=== PATIENT | male | born 1950 | race Caucasian/White ===

== ENCOUNTER 2016-07-24 21:13 | Observation (INO) ==
--- NOTE | 2016-07-24 21:27 | Emergency Department Note ---
Disposition Forms: ED Satisfaction Letter Chest Pain HPI - General Chief Complaint: ED Chest Pain Stated Complaint: chest pains Time Seen by Provider: 07/24/16 21:26 Source: patient Limitations: no limitations - History of Present Illness Severity scale (1-10): 7 - Related Data Home Medications Medication Instructions Recorded Confirmed Alfuzosin HCl [Uroxatral] 10 mg PO DAILY 08/16/15 08/16/15 Cyclobenzaprine [Flexeril] 10 mg PO HS 08/16/15 08/16/15 DiphenhydraMINE [Benadryl] 50 mg PO HS 08/16/15 08/16/15 Diphenoxylate/Atropine [Lomotil 1 tab PO DAILY 08/16/15 08/16/15 2.5 mg/0.025 mg] Fenofibrate [Lofibra] 160 mg PO DAILY 08/16/15 08/16/15 Folic Acid 1 mg PO DAILY 08/16/15 08/16/15 Lactobacillus Combination No.8 1 cap PO BID 08/16/15 08/16/15 [Adult Probiotic] Multivitamin [One Daily Essential] 1 tab PO DAILY 08/16/15 08/16/15 metFORMIN [Glucophage] 500 mg PO BIDWM 08/16/15 08/16/15 sulfaSALAzine [Sulfasalazine] 1,000 mg PO QAM 08/16/15 08/16/15 Previous Rx's Medication Instructions Recorded Clindamycin [Cleocin] 150 mg PO Q6HR #8 capsule 08/15/15 Hydrocodone/Acetaminophen [[place] 1 tab PO Q6H PRN #20 tab 08/15/15 5-325 Tablet] Allergies Allergy/AdvReac Type Severity Reaction Status Date / Time No Known Allergies Allergy Verified 10/20/14 04:34 Chest Pain PMH - Past Medical History Medical history: Reports: diabetes, hyperlipidemia, other Surgical history: Reports: other Psychiatric history: Reports: no psych history - Social History Smoking Status: Never smoker Alcohol use: Reports: none Drug use: Reports: none Physical Exam - General Limitations: no limitations General appearance: alert, in no apparent distress Course Vital Signs Temperature 97.8 F 07/24/16 21:17 Pulse Rate 116 07/24/16 21:17 Respiratory Rate 20 07/24/16 21:17 Blood Pressure 179/105 07/24/16 21:17 O2 Sat by Pulse Oximetry 95 06/09/17 21:17 Temperature 97.8 F 07/24/16 21:17 Pulse Rate 116 07/24/16 21:17 Respiratory Rate 20 07/24/16 21:17 Blood Pressure 179/105 07/24/16 21:17 O2 Sat by Pulse Oximetry 95 07/24/16 21:17 Oxygen Delivery Oxygen Delivery Room Air
[2016-07-24] MEDS ORDERED: Nitroglycerin 0.4 MG TAB.SUBL SL ONE (21:48)
[2016-07-24] MEDS ORDERED: Aspirin 81 MG TAB.CHEW PO ONE (21:48)
--- NOTE | 2016-07-24 21:48 | Emergency Department Note ---
Disposition Clinical Impression: Chest pain Disposition: Admitted As Inpatient Referrals: Mahendra Delgado MD [Primary Care Provider] - Forms: ED Satisfaction Letter Chest Pain HPI - General Chief Complaint: ED Chest Pain Stated Complaint: chest pains Time Seen by Provider: 07/24/16 21:26 Source: patient Mode of arrival: ambulatory Limitations: no limitations Vital Signs Reviewed: Yes Nursing Notes Reviewed: Yes - History of Present Illness Pt complaint: chest pain Severity scale (1-10): 7 - Related Data Home Medications Medication Instructions Recorded Confirmed Alfuzosin HCl [Uroxatral] 10 mg PO DAILY 08/16/15 08/16/15 Cyclobenzaprine [Flexeril] 10 mg PO HS 08/16/15 08/16/15 DiphenhydraMINE [Benadryl] 50 mg PO HS 08/16/15 08/16/15 Diphenoxylate/Atropine [Lomotil 1 tab PO DAILY 08/16/15 08/16/15 2.5 mg/0.025 mg] Fenofibrate [Lofibra] 160 mg PO DAILY 08/16/15 08/16/15 Folic Acid 1 mg PO DAILY 08/16/15 08/16/15 Lactobacillus Combination No.8 1 cap PO BID 08/16/15 08/16/15 [Adult Probiotic] Multivitamin [One Daily Essential] 1 tab PO DAILY 08/16/15 08/16/15 metFORMIN [Glucophage] 500 mg PO BIDWM 08/16/15 08/16/15 sulfaSALAzine [Sulfasalazine] 1,000 mg PO QAM 08/16/15 08/16/15 Previous Rx's Medication Instructions Recorded Clindamycin [Cleocin] 150 mg PO Q6HR #8 capsule 08/15/15 Hydrocodone/Acetaminophen [[place] 1 tab PO Q6H PRN #20 tab 08/15/15 5-325 Tablet] Allergies Allergy/AdvReac Type Severity Reaction Status Date / Time No Known Allergies Allergy Verified 10/20/14 04:34 All systems ED: reviewed and negative except as stated. Constitutional: Denies: fever, chills Cardiovascular: Reports: chest pain. Denies: palpitations, dyspnea on exertion , syncope Respiratory: Denies: cough, dyspnea Gastrointestinal: Reports: nausea. Denies: abdominal pain, vomiting, diarrhea Genitourinary: Denies: urgency, dysuria, frequency Musculoskeletal: Denies: back pain, neck pain Integumentary: Denies: rash Neurological: Denies: headache, weakness, numbness, paresthesias Psychiatric: Reports: anxiety Chest Pain PMH - Past Medical History Medical history: Reports: diabetes, hyperlipidemia, other Surgical history: Reports: other Psychiatric history: Reports: no psych history - Social History Smoking Status: Never smoker Alcohol use: Reports: none Drug use: Reports: none Physical Exam - General Limitations: no limitations General appearance: alert, in no apparent distress - Head Head exam: atraumatic, normocephalic, normal inspection - Eye Eye exam: Present: normal appearance, PERRL, EOMI - ENT ENT exam: normal exam, normal oropharynx, mucous membranes moist - Neck Neck exam: Present: normal inspection, full ROM - Chest Chest inspection: Present: normal inspection, symmetric chest wall rise. Absent : tenderness - Respiratory Respiratory exam: Present: normal lung sounds bilaterally. Absent: respiratory distress, wheezes - Cardiovascular Cardiovascular exam: Present: regular rate, normal rhythm, normal heart sounds - Abdominal Exam Abdominal exam: Present: soft, tenderness, normal bowel sounds. Absent: distention, guarding, rebound, rigidity Abdominal tenderness: Present: epigastrium - Extremities Exam Extremities exam: Present: normal inspection, full ROM, normal capillary refill. Absent: pedal edema, calf tenderness - Neurological Exam Neurological exam: Present: alert, oriented X3, CN II-XII intact, reflexes normal. Absent: motor sensory deficit - Psychiatric Psychiatric exam: Present: normal affect, anxious - Skin Skin exam: Present: warm, dry, intact, normal color. Absent: diaphoresis Course Vital Signs Temperature 97.8 F 07/24/16 21:17 Pulse Rate 116 07/24/16 21:17 Respiratory Rate 20 07/24/16 21:17 Blood Pressure 179/105 07/24/16 21:17 O2 Sat by Pulse Oximetry 95 07/24/16 21:17 Temperature 97.8 F 07/24/16 21:17 Pulse Rate 105 07/24/16 23:20 Respiratory Rate 16 07/24/16 23:20 Blood Pressure 166/92 07/24/16 23:20 O2 Sat by Pulse Oximetry 96 07/24/16 23:20 Oxygen Delivery Oxygen Delivery Room Air Chest Pain - Medical Records Medical records reviewed: Yes I reviewed the patient's medical records. - Lab Data Result diagrams: 07/24/16 21:45 07/24/16 21:45 Lab Results 07/24/16 07/24/16 07/24/16 Range/Units 21:45 21:45 21:45 WBC 11.6 H (4.3-11.1) K/mcL RBC 4.89 (4.19-5.50) M/mcL Hgb 13.8 (12.9-16.9) g/dL Hct 41.5 (37.5-50.1) % MCV 84.9 (83.0-100.0) fL MCH 28.2 (28.0-33.3) pg MCHC 33.3 (31.6-35.5) g/dL RDW 14.7 H (11.5-14.5) % Plt Count 146 (140-400) K/mcL MPV 10.5 (9.4-12.4) fL Immature Gran % 0.4 (0-4) % Seg Neutrophils % 87.7 % Lymphocytes % 4.2 % Monocytes % 7.4 % Eosinophils % 0.1 % Basophils % 0.2 % Neutrophils # 10.2 H (1.6-8.9) K/mcL Lymphocytes # 0.5 L (0.6-4.6) K/mcL Monocytes # 0.9 (0.0-1.3) K/mcL Eosinophils # 0.0 (0.0-0.6) K/mcL Basophils # 0.0 (0.0-0.2) K/mcL PT 10.9 (9.4-12.1) Seconds INR 1.0 APTT 26.1 (26.0-36.0) Seconds Sodium (136-145) mEq/L Potassium (3.5-4.5) mEq/L Chloride (98-109) mEq/L Carbon Dioxide (19-29) mEq/L BUN (8-26) mg/dL Creatinine (0.72-1.25) mg/dL Est GFR ( Amer) (> 60) Est GFR (Non-Af Amer) (> 60) BUN/Creatinine Ratio (6-26) Glucose (70-99) mg/dL Calculated Osmolality (280-300) Calcium (8.6-10.8) mg/dL Total Bilirubin (0.2-1.2) mg/dL Direct Bilirubin (0.0-0.5) mg/dL Indirect Bilirubin (0.0-1.2) mg/dL AST (5-34) Units/L ALT (0-55) Units/L Alkaline Phosphatase (38-126) Units/L Troponin I (0-0.03) ng/mL B-Natriuretic Peptide 13 (0-100) pg/mL Serum Total Protein (6.0-8.3) g/dL Albumin (3.5-5.0) g/dL Globulin (2.4-3.5) g/dL Albumin/Globulin Ratio (1.1-2.2) Lipase (8-78) Units/L 07/24/16 07/24/16 Range/Units 21:45 21:45 WBC (4.3-11.1) K/mcL RBC (4.19-5.50) M/mcL Hgb (12.9-16.9) g/dL Hct (37.5-50.1) % MCV (83.0-100.0) fL MCH (28.0-33.3) pg MCHC (31.6-35.5) g/dL RDW (11.5-14.5) % Plt Count (140-400) K/mcL MPV (9.4-12.4) fL Immature Gran % (0-4) % Seg Neutrophils % % Lymphocytes % % Monocytes % % Eosinophils % % Basophils % % Neutrophils # (1.6-8.9) K/mcL Lymphocytes # (0.6-4.6) K/mcL Monocytes # (0.0-1.3) K/mcL Eosinophils # (0.0-0.6) K/mcL Basophils # (0.0-0.2) K/mcL PT (9.4-12.1) Seconds INR APTT (26.0-36.0) Seconds Sodium 139 (136-145) mEq/L Potassium 3.7 (3.5-4.5) mEq/L Chloride 99 (98-109) mEq/L Carbon Dioxide 14 L (19-29) mEq/L BUN 7 L (8-26) mg/dL Creatinine 0.84 (0.72-1.25) mg/dL Est GFR ( Amer) > 60 (> 60) Est GFR (Non-Af Amer) > 60 (> 60) BUN/Creatinine Ratio 8 (6-26) Glucose 81 (70-99) mg/dL Calculated Osmolality 285 (280-300) Calcium 8.9 (8.6-10.8) mg/dL Total Bilirubin 0.6 (0.2-1.2) mg/dL Direct Bilirubin 0.3 (0.0-0.5) mg/dL Indirect Bilirubin 0.3 (0.0-1.2) mg/dL AST 140 H (5-34) Units/L ALT 112 H (0-55) Units/L Alkaline Phosphatase 46 (38-126) Units/L Troponin I 0.02 (0-0.03) ng/mL B-Natriuretic Peptide (0-100) pg/mL Serum Total Protein 6.6 (6.0-8.3) g/dL Albumin 3.7 (3.5-5.0) g/dL Globulin 2.9 (2.4-3.5) g/dL Albumin/Globulin Ratio 1.3 (1.1-2.2) Lipase 28 (8-78) Units/L - Radiology Data Radiology results reviewed: Yes I reviewed the patient's radiology results. Chest X-Ray 07/24/16 21:48 IMPRESSION: No acute cardiopulmonary abnormality. D/ / Raz Bolton MD / Raz Bolton MD Interpreting Provider: Raz Bolton MD Chest CTA 07/24/16 22:36 IMPRESSION: 1. Mild aortic atherosclerosis with no aneurysm or dissection. No central pulmonary emboli. 2. No acute pneumonia. Indeterminate 7 mm right upper lobe pulmonary nodule. A follow-up CT thorax without contrast at 6 and 12 months is recommended for the 2017 Fleischner Society guidelines for management of incidentally detected pulmonary nodules in adults. 3. Findings suggesting gastroenteritis. No obstruction, perforation, or abscess. Normal appendix. 4. Severe hepatic steatosis. Nonobstructing left nephrolithiasis. Left nate colonic diverticulosis. D/ / Alberto Herrera MD / Alberto Herrera MD Interpreting Provider: Alberto Herrera MD - EKG Data EKG attestation: Yes I reviewed and interpreted this EKG. EKG results narrative: Patient's EKG shows a sinus tachycardia with short WI interval at [address] or T-wave changes are appreciated, nonspecific changes. Heart Score - Score History: Moderately Suspicious EKG: Non Specific repolarisation Disturbance Age: Greater than 65 Risk Factors: 1-2 risk factors Troponin: Less than normal limit HEART Score Total: 5
[2016-07-24 21:58] LABS: Basophils % 0.2 %; Eosinophils % 0.1 %; Hematocrit 41.5 % (37.5-50.1); Hemoglobin 13.8 g/dL (12.9-16.9); Immature Granulocytes % 0.4 % (0-4); Lymphocytes # 0.5 K/mcL (0.6-4.6); Lymphocytes % 4.2 %; Mean Corpuscular HGB Conc 33.3 g/dL (31.6-35.5); Mean Corpuscular Hemoglobin 28.2 pg (28.0-33.3); Mean Corpuscular Volume 84.9 fL (83.0-100.0); Mean Platelet Volume 10.5 fL (9.4-12.4); Monocytes # 0.9 K/mcL (0.0-1.3); Monocytes % 7.4 %; Neutrophils # 10.2 K/mcL (1.6-8.9); Platelet Count 146 K/mcL (140-400); Red Blood Count 4.89 M/mcL (4.19-5.50); Red Cell Distribution Width 14.7 % (11.5-14.5); Segmented Neutrophils % 87.7 %
[2016-07-24 22:00] LABS: Prothrombin Time 10.9 Seconds (9.4-12.1)
[2016-07-24 22:03] LABS: Activated Partial Thrombo Time 26.1 Seconds (26.0-36.0)
[2016-07-24 22:10] LABS: Alanine Aminotransferase 112 Units/L (0-55); Albumin 3.7 g/dL (3.5-5.0); Albumin/Globulin Ratio 1.3 (1.1-2.2); Alkaline Phosphatase 46 Units/L (38-126); Aspartate Amino Transferase 140 Units/L (5-34); BUN/Creatinine Ratio 8 (6-26); Bilirubin,Direct 0.3 mg/dL (0.0-0.5); Bilirubin,Indirect 0.3 mg/dL (0.0-1.2); Bilirubin,Total 0.6 mg/dL (0.2-1.2); Blood Urea Nitrogen 7 mg/dL (8-26); Calcium 8.9 mg/dL (8.6-10.8); Carbon Dioxide 14 mEq/L (19-29); Chloride 99 mEq/L (98-109); Globulin 2.9 g/dL (2.4-3.5); Glucose 81 mg/dL (70-99); Lipase 28 Units/L (8-78); Osmolality,Calculated 285 (280-300); Potassium 3.7 mEq/L (3.5-4.5); Sodium 139 mEq/L (136-145); Total Protein 6.6 g/dL (6.0-8.3); eGFR For African Americans > 60 (> 60); eGFR For Non-African Americans > 60 (> 60)
[2016-07-24] MEDS ORDERED: Ondansetron 4 MG/2 ML VIAL IVP ONE (22:37)
[2016-07-24] MEDS ORDERED: *HR* Morphine 2 MG/ML SYRINGE IVP ONE (22:37)
[2016-07-25] MEDS ORDERED: Nitroglycerin 0.4 MG TAB.SUBL SL PRN (01:08)
[2016-07-25] MEDS ORDERED: Ipratropium/Albuterol Neb 3 ML IH PRN (01:08)
[2016-07-25] MEDS ORDERED: Doxycycline 100 MG in 0.9 % Sodium Chloride Mini Bag 100 ML IVPB SCH (01:09)
[2016-07-25] MEDS ORDERED: D5% in Water 1,000 ML IVC PRN (01:10)
[2016-07-25] MEDS ORDERED: Ketorolac 30 MG/ML VIAL IVP PRN (01:10)
[2016-07-25] MEDS ORDERED: Naloxone 0.4 MG/ML INJ IVP PRN (01:10)
[2016-07-25] MEDS ORDERED: Acetaminophen 325 MG TABLET PO PRN (01:10)
[2016-07-25] MEDS ORDERED: *HR* Dextrose 50 % in Water (Syg) 50 ML SYRINGE IVP PRN (01:10)
[2016-07-25] MEDS ORDERED: Dextrose Gel 15 GM PO PRN ×2 (01:10)
[2016-07-25] MEDS ORDERED: *HR* Morphine 2 MG/ML SYRINGE IVP PRN (01:10)
[2016-07-25] MEDS ORDERED: Ondansetron 4 MG/2 ML VIAL IVP PRN (01:10)
--- NOTE | 2016-07-25 01:18 | Internal Med History&Physical ---
Date of Encounter: 07/25/16 Time of Encounter: 01:15 Assessment and Plan (1) Transaminitis Current visit: Yes Status: Acute Accompanied by lymphopenia which sometimes can be seen in early Ehrlichiosis/ anaplasmosis Monitor CMP's Tests for Ehrlichia Anaplasma Start doxycycline which may be discontinued if negative May order a liver ultrasound Omeprazole for GI prophylaxis and subcutaneous heparin for DVT prophylaxis. The patient will be admitted for observation. Full code. Time spent on this admission 40 minutes. (2) Lymphopenia Current visit: Yes Status: Acute (3) Diabetes Current visit: Yes Status: Acute Hold metformin, use insulin sliding scale Qualifiers: Diabetes mellitus type: type 2 Diabetes mellitus complication status: without complication Diabetes mellitus assisted insulin use: without assisted use Qualified Code(s): E11.9 - Type 2 diabetes mellitus without complications (4) Crohns disease Current visit: Yes Status: Acute Hold sulfasalazine for possible infection Qualifiers: Gastrointestinal tract location: unspecified location Digestive disease complication type: unspecified complication Qualified Code(s): K50.919 - Crohn 's disease, unspecified, with unspecified complications (5) Dehydration Current visit: Yes Status: Acute Continue IV fluids (6) Chest pain Current visit: Yes Status: Acute Continue aspirin, no stating due to abnormal LFTs Telemetry, follow troponins Order echocardiogram, consider stress test when he is more stable Qualifiers: Chest pain type: other chest pain Qualified Code(s): R07.89 - Other chest pain; R07.8 - Other chest pain Internal Medicine - H&P: HPI Chief complaint: Chest pain Admitted From: Emergency Dept History of present illness: Mr. Stanley is a 66 year old male with a past medical history of hyperlipidemia, diabetes type 2 not insulin-dependent Crohn's on sulfasalazine. Patient came complaining of chest pressure that started earlier today at 3 PM accompanied by shortness of breath 8 out of 10 in intensity without radiation. The patient was very diaphoretic and his heart rate is 116, blood pressure 179 / 105. Appears very sweaty his white blood cell count is 11.6 but has lymphopenia at 0.5 his AST is 140 ALT is 112, denies any sick contacts, says that he does not drink any alcohol. Admits walking outside a lot, has lost a lot of weight on purpose in the past 6 weeks going from 256 pounds down to 234. A few days ago she found a small lesion in his right thigh that was erythematosus and is healing properly at the moment. Denies seeing any tick bite but that lesion appears like a bite. CT angios was performed in the emergency room and did not show any pulmonary emboli or dissection. Showed a pulmonary nodule. The pain has come down to 4 out of 10 after morphine, he was given aspirin. EKG shows sinus tachycardia, troponin and chest x-ray are unremarkable. Past Med Surg Social Fam HX - Past Medical History Medical history: diabetes (Not insulin-dependent), hyperlipidemia, other (Crohn' s disease on sulfasalazine, hyperlipidemia, nephrolithiasis, diverticulosis) Psychiatric history: no psych history - Past Surgical History Surgical History: other (Hip replacement) - Social History Smoking Status: Never smoker Smokeless Tobacco Status: Yes Alcohol use: none Drug use: none - Additional Family History Additional family history: Father with skin cancer Internal Medicine - H&P: Meds Clindamycin [Cleocin] 150 mg PO Q6HR #8 capsule 08/15/15 [Rx] Alfuzosin HCl [Uroxatral] 10 mg PO HS 08/16/15 [History] Cyclobenzaprine [Flexeril] 10 mg PO HS 08/16/15 [History] DiphenhydraMINE [Benadryl] 50 mg PO HS 08/16/15 [History] Diphenoxylate/Atropine [Lomotil 2.5 mg/0.025 mg] 1 tab PO TID 08/16/15 [History] Fenofibrate [Lofibra] 160 mg PO DAILY 08/16/15 [History] Folic Acid 1 mg PO DAILY 08/16/15 [History] Multivitamin [One Daily Essential] 1 tab PO DAILY 08/16/15 [History] metFORMIN [Glucophage] 1,000 mg PO BIDWM 08/16/15 [History] sulfaSALAzine [Sulfasalazine] 1,000 mg PO QAM 08/16/15 [History] Allergies No Known Allergies Allergy (Verified 07/25/16 01:05) All Systems PM: A 10-system review of systems was performed and is negative for pertinent findings except as documented above in the HPI. Review of systems: Feels very weak and continues to complain of chest pressure. Other systems out of the 10 reviewed were negative - Constitutional Vitals: Temp Pulse Resp BP Pulse Ox 97.8 F 104 16 158/90 98 07/24/16 21:17 07/25/16 00:51 07/25/16 01:12 07/25/16 01:12 07/25/16 00:51 General appearance: Present: A&O X 3 - Head Head exam: Present: atraumatic, normocephalic - Eye Eye exam: Present: PERRL, conjuntiva pink, sclera anicteric Pupils: Present: PERRL - Neck Neck exam general surgery: Present: supple, trachea midline. Absent: lymphadenopathy - Respiratory Respiratory exam: Present: decreased breath sounds, CTAB. Absent: accessory muscle use, rales, rhonchi, wheezes - Cardiovascular Cardiovascular exam: Present: RRR, +S1, +S2, tachycardia. Absent: diastolic murmur, gallop, rubs, systolic murmur - GI/Abdominal GI/Abdominal exam: Present: normal bowel sounds, soft, no peritoneal signs. Absent: distended, tenderness Additional comments: Epigastric tenderness - Extremities Exam Extremities exam: Present: warm, radial pulses palpable and symetrical. Absent : calf tenderness, cyanotic, pedal edema - Neurological Exam Neurological exam: Present: CN II-XII intact, oriented X3, no focal deficits. Absent: pronater drift, facial droop, speech deficit - Skin Skin exam: Present: dry, intact Internal Med - H&P Results - Labs CBC & Chem 7: 07/24/16 21:45 07/24/16 21:45
[2016-07-25] MEDS: 0.9 % Sodium Chloride 1,000 ML IVC SCH ×5 (02:23→19:37)
[2016-07-25 03:03] LABS: Basophils % 0.2 %; Hemoglobin 12.9 g/dL (12.9-16.9); Immature Granulocytes % 0.5 % (0-4); Lymphocytes # 0.5 K/mcL (0.6-4.6); Lymphocytes % 4.4 %; Mean Corpuscular HGB Conc 33.1 g/dL (31.6-35.5); Mean Corpuscular Hemoglobin 28.2 pg (28.0-33.3); Mean Corpuscular Volume 85.2 fL (83.0-100.0); Mean Platelet Volume 11.2 fL (9.4-12.4); Monocytes # 0.7 K/mcL (0.0-1.3); Monocytes % 7.2 %; Platelet Count 135 K/mcL (140-400); Red Blood Count 4.58 M/mcL (4.19-5.50); Red Cell Distribution Width 14.8 % (11.5-14.5); Segmented Neutrophils % 87.7 %
[2016-07-25 03:21] LABS: BUN/Creatinine Ratio 9 (6-26); Blood Urea Nitrogen 9 mg/dL (8-26); Carbon Dioxide 16 mEq/L (19-29); Chloride 98 mEq/L (98-109); Sodium 136 mEq/L (136-145)
[2016-07-25 03:22] LABS: Alanine Aminotransferase 98 Units/L (0-55); Albumin 3.4 g/dL (3.5-5.0); Albumin/Globulin Ratio 1.2 (1.1-2.2); Alkaline Phosphatase 43 Units/L (38-126); Aspartate Amino Transferase 103 Units/L (5-34); Bilirubin,Total 0.7 mg/dL (0.2-1.2); Calcium 8.9 mg/dL (8.6-10.8); Chol/HDL Ratio 4.2 (0-4.9); Cholesterol 175 mg/dL (< 200); Globulin 2.8 g/dL (2.4-3.5); Glucose 167 mg/dL (70-99); HDL Cholesterol 42 mg/dL (40-59); LDL Cholesterol,Calculated 109 mg/dL (0-99); Osmolality,Calculated 284 (280-300); Total Protein 6.2 g/dL (6.0-8.3); Triglycerides 120 mg/dL (< 150); eGFR For African Americans > 60 (> 60); eGFR For Non-African Americans > 60 (> 60)
[2016-07-25] MEDS: *HR* Heparin 5,000 UNIT/ML VIAL SQ SCH ×2 (05:33→17:24)
[2016-07-25] MEDS: Insulin LISPRO 300 UNITS/3 ML VIAL SQ SCH ×3 (08:03→16:57)
[2016-07-25] MEDS ORDERED: GI Cocktail 40 ML EACH PO ONE (10:09)
[2016-07-25] MEDS: Aspirin Enteric Coated 325 MG Tablet PO SCH (10:30)
[2016-07-25] MEDS: Doxycycline 100 MG in 0.9 % Sodium Chloride Mini Bag 100 ML IVPB SCH (14:30)
--- NOTE | 2016-07-25 17:40 | Internal Med Progress Note ---
Date of Encounter: 07/25/16 Time of Encounter: 09:30 - Assessment and plan (1) Chest pain Current Visit: Yes Status: Acute Assessment and plan: Patient reported sudden onset epigastric and substernal pain that began at 1400 yesterday while he was at rest. He said it was 10 out of 10 without radiation. He did have nausea, no vomiting, and was profusely diaphoretic. He denies history of GERD or any recent heartburn symptoms. He rated 10 out of 10 at the time, this morning it was 4 out of 10. After he returned from his testing I gave him a GI cocktail and he said the pain has resolved. He is tender in the epigastric area. He sees GI specialist in [place] for his Crohn's, he denies ever having an EGD. We will start Carafate today. Patient had an echocardiogram today that showed normal systolic function with LVEF is 6065%, mild diastolic dysfunction. No significant valvular dysfunction no evidence of pulmonary hypertension. His troponins were negative 3. Chest x -ray was negative. CTA chest showed mild aortic atherosclerosis no pulmonary emboli. No acute pneumonia. Indeterminate 7 mm right upper lobe nodule that would need followed up with CT in 6-12 months. Findings suggestive with gastroenteritis, no obstruction no perforation and no abscess. Appendix were normal. Patient also has severe hepatic steatosis, nonobstructing left nephrolithiasis, and left nate-colonic diverticulosis. We will continue prescription benefit specialist labs Monitor for chest pain. Consider stress test if chest pain continues after patient is more stable. Qualifiers: Chest pain type: other chest pain Qualified Code(s): R07.89 - Other chest pain; R07.8 - Other chest pain (2) Transaminitis Current Visit: Yes Status: Acute Assessment and plan: Transaminases have decreased since admission, however they are still elevated. CTA chest shows severe hepatic steatosis. Patient had a right upper quadrant ultrasound there is no evidence for cholelithiasis or biliary obstruction, there is sludge in the gallbladder. Again it shows hepatic steatosis, and normal appearance of the right kidney and visualized portion of the pancreas. There is no hepatomegaly. He is tender in the epigastric area, and CTA chest was positive for gastritis. Sclera are icteric and patient does appear to be slightly jaundiced on his extremities. He also reports that he has a history of hepatitis C antibodies. Patient is receiving IV doxycycline for possible ehrlichiosis or anaplasmosis. Hepatic panel and transaminases in the morning Viral hepatitis panel is ordered and pending IV fluids Patient also has lymphocyte# 0.5, Erlichia and Anaplasma labs are still pending (3) Lymphopenia Current Visit: Yes Status: Acute Assessment and plan: Plan as above (4) Diabetes Current Visit: Yes Status: Acute Assessment and plan: Sliding-scale insulin Diabetic diet Next checks before meals at bedtime A1c 6.8 in May. Qualifiers: Diabetes mellitus type: type 2 Diabetes mellitus complication status: without complication Diabetes mellitus network administrator insulin use: without senior care use Qualified Code(s): E11.9 - Type 2 diabetes mellitus without complications (5) Crohns disease Current Visit: Yes Status: Acute Assessment and plan: Sulfasalazine as been held. Patient denies pain or complications. Qualifiers: Gastrointestinal tract location: unspecified location Digestive disease complication type: unspecified complication Qualified Code(s): K50.919 - Crohn 's disease, unspecified, with unspecified complications (6) Dehydration Current Visit: Yes Status: Acute Assessment and plan: IV fluids overnight. - Time Spent With Patient less than 15 minutes - Subjective Interval history: Patient was seen and evaluated about 9:30 AM. He reported epigastric pain and substernal pain that began at 2 PM yesterday while he was resting. He reports that it was a 10 out of 10. There is no radiation, but he did have nausea and profuse diaphoresis. It was a 4 out of 10 when I initially assessed him. He then went to his ultrasound and echo and when he came back again a GI cocktail. Since that time the pain has resolved. He is tender in the epigastric area. He says that he does see a GI specialist in [place] for his Crohn's disease. He denies having an EGD done. Patient's tests have all come back normal, however I am concerned with his transaminase levels and he is slightly jaundiced. His sclerae and arms are very slightly jaundiced. Patient initially said that he wanted to go home and he cannot afford to be here. I did request that he sign out AMA and he decided to stay. The primary nurse and I did go over his labs with him. He said he had labs done in May and that they were perfectly fine. He did report at the end of the evaluation that his primary care physician has told him that he has hepatitis C antibodies. Viral hepatitis panel has been ordered and will be reviewed in the morning. - Constitutional Vitals: Temp Pulse Resp BP Pulse Ox 98.6 F 81 17 179/101 97 07/25/16 15:37 07/25/16 15:37 07/25/16 15:37 07/25/16 15:37 07/25/16 15:37 General appearance: Present: cooperative, A&O X 3, pleasant, no acute distress, answers questions appropriately - Head Head exam: Present: normal inspection - Eye Eye exam: Present: EOMI, scleral icterus, conjuntiva pink. Absent: nystagmus - ENT ENT exam: Present: mucous membranes moist, normal exam, normal external ear exam - Neck Neck exam general surgery: Present: normal inspection. Absent: lymphadenopathy , tenderness - Respiratory Respiratory exam: Present: CTAB. Absent: decreased breath sounds, rales, respiratory distress, rhonchi, wheezes - Cardiovascular Cardiovascular exam: Present: RRR, +S1, +S2. Absent: clicks, diastolic murmur, gallop, systolic murmur - GI/Abdominal GI/Abdominal exam: Present: distended, soft, tenderness. Absent: hepatomegaly Additional comments: No hepatomegaly noted. Patient was tender in the epigastric area. - Extremities Exam Extremities exam: Present: normal inspection, warm, radial pulses palpable and symetrical. Absent: tenderness - Neurological Exam Neurological exam: Present: alert, oriented X3, no focal deficits, strengths equal and symetr throughout. Absent: facial droop, speech deficit - Skin Skin exam: Present: dry, intact, warm. Absent: normal color, rash Internal Medicine: Result - Labs CBC & Chem 7: 07/25/16 01:59 07/25/16 01:59 Labs: Short CBC 07/25/16 Range/Units 01:59 WBC 10.3 (4.3-11.1) K/mcL Hgb 12.9 (12.9-16.9) g/dL Hct 39.0 (37.5-50.1) % Plt Count 135 L (140-400) K/mcL Neutrophils # 9.0 H (1.6-8.9) K/mcL BMP 07/25/16 01:59 Sodium 136 Potassium 4.0 Chloride 98 Carbon Dioxide 16 L BUN 9 Creatinine 1.01 Glucose 167 H Calcium 8.9 Cardiac Enzymes 06/10/17 06/10/17 06/10/17 Range/Units 01:59 08:48 13:45 Troponin I 0.00 0.00 0.00 (0-0.03) ng/mL Liver Function 07/25/16 Range/Units 01:59 Total Bilirubin 0.7 (0.2-1.2) mg/dL AST 103 H (5-34) Units/L ALT 98 H (0-55) Units/L Alkaline Phosphatase 43 (38-126) Units/L Albumin 3.4 L (3.5-5.0) g/dL - ABG Interpretation ABG results: PT/INR, D-dimer PT 10.9 Seconds (9.4-12.1) 07/24/16 21:45 - Impressions Impressions Liver Ultrasound 07/25/16 09:30 IMPRESSION: 1. No evidence of cholelithiasis or biliary obstruction. There is sludge in the gallbladder lumen 2. Hepatic steatosis 3. Normal appearance of the right kidney and visualized portion of the pancreas D/ / Michael Ahn MD / Michael Ahn MD Interpreting Provider: Michael Ahn MD Consult Discharge Plan - Plan Referrals: Mahendra Delgado MD [Primary Care Provider] -
[2016-07-26] MEDS: Doxycycline 100 MG in 0.9 % Sodium Chloride Mini Bag 100 ML IVPB SCH (01:38)
[2016-07-26] MEDS: 0.9 % Sodium Chloride 1,000 ML IVC SCH ×3 (01:38→06:07)
[2016-07-26 04:14] LABS: Basophils % 0.2 %; Eosinophils # 0.1 K/mcL (0.0-0.6); Eosinophils % 1.7 %; Hematocrit 35.8 % (37.5-50.1); Hemoglobin 11.8 g/dL (12.9-16.9); Immature Granulocytes % 0.4 % (0-4); Lymphocytes # 0.9 K/mcL (0.6-4.6); Lymphocytes % 17.1 %; Mean Corpuscular Hemoglobin 28.2 pg (28.0-33.3); Mean Corpuscular Volume 85.4 fL (83.0-100.0); Mean Platelet Volume 11.3 fL (9.4-12.4); Monocytes # 0.4 K/mcL (0.0-1.3); Monocytes % 8.5 %; Neutrophils # 3.7 K/mcL (1.6-8.9); Platelet Count 104 K/mcL (140-400); Red Blood Count 4.19 M/mcL (4.19-5.50); Red Cell Distribution Width 14.8 % (11.5-14.5); Segmented Neutrophils % 72.1 %
[2016-07-26 04:23] LABS: Albumin 2.9 g/dL (3.5-5.0); Albumin/Globulin Ratio 1.2 (1.1-2.2); Bilirubin,Direct 0.3 mg/dL (0.0-0.5); Bilirubin,Indirect 0.4 mg/dL (0.0-1.2); Bilirubin,Total 0.7 mg/dL (0.2-1.2); Globulin 2.4 g/dL (2.4-3.5); Total Protein 5.3 g/dL (6.0-8.3)
[2016-07-26 04:24] LABS: Alanine Aminotransferase 53 Units/L (0-55); Aspartate Amino Transferase 44 Units/L (5-34); BUN/Creatinine Ratio 8 (6-26); Blood Urea Nitrogen 6 mg/dL (8-26); Calcium 8.4 mg/dL (8.6-10.8); Carbon Dioxide 27 mEq/L (19-29); Chloride 101 mEq/L (98-109); Glucose 98 mg/dL (70-99); Osmolality,Calculated 282 (280-300); Potassium 3.3 mEq/L (3.5-4.5); Sodium 137 mEq/L (136-145); eGFR For African Americans > 60 (> 60); eGFR For Non-African Americans > 60 (> 60)
[2016-07-26] MEDS: *HR* Heparin 5,000 UNIT/ML VIAL SQ SCH (05:29)
[2016-07-26 07:51] VITALS: BP 183/102
[2016-07-26] MEDS: Insulin LISPRO 300 UNITS/3 ML VIAL SQ SCH (08:25)
[2016-07-26] MEDS: Aspirin Enteric Coated 325 MG Tablet PO SCH (08:31)
--- NOTE | 2016-07-26 09:54 | Discharge Summary ---
Date of Encounter: 07/26/16 Time of Encounter: 09:00 - Discharge Diagnosis (1) Chest pain Priority: Primary Status: Acute Comments: Patient denies chest pain today. He says he has not had chest pain since yesterday. I gave him a GI cocktail yesterday that brought his pain from a 4-5/ 10 to a 1/10. He remains tender in the epigastric area, but states it is at her than previously Patient had echocardiogram showed normal systolic function with an LVEF of 60-65 %, mild diastolic dysfunction, normal right ventricular size and function with no significant valvular dysfunction or pulmonary hypertension.. Chest x-ray was negative. Chest CT angioma showed mild aortic atherosclerosis with no aneurysm or dissection, no PE. No pneumonia. He has an indeterminate 7 mm right upper lobe pulmonary nodule that needs followed up in 6-[address] were suggestive of gastroenteritis, there is no obstruction or perforation or abscess. He also has severe hepatic steatosis, nonobstructing left nephrolithiasis, as well as left hemicolonic diverticulosis. Troponins were negative. He denies chest pain. His vitals have remained stable. Qualifiers: Chest pain type: other chest pain Qualified Code(s): R07.89 - Other chest pain; R07.8 - Other chest pain (2) Transaminitis Priority: Secondary Status: Acute Comments: Transaminases were elevated yesterday, have decreased today. AST remains elevated at 44, however was 140 on arrival. ALT has returned to normal. Hepatitis panel, Erlichia, and Anaplasma labs are still pending, they have been received by lab. No hepatomegaly noted, Cadena's negative, abd soft and non- tender other than in epigastric area. CTA chest showed severe hepatic steatosis. Patient also had a right upper quadrant ultrasound that showed no evidence of cholelithiasis or biliary distraction, there is sludge in the gallbladder lumen. It also showed hepatic steatosis as well as normal appearance of the right kidney and visualized portion of the pancreas. Patient's sclera are no longer icteric, patient still does have faint yellowish cast to bilateral arms. Patient states this is normal for him and that he is rico. Patient will need to follow up with primary care for further evaluation and testing. (3) Lymphopenia Priority: Secondary Status: Acute Comments: Lymphocytes have returned to normal limits today, no leukocytosis. (4) Diabetes Priority: Secondary Status: Acute Comments: A1c is 6.8 and May. Patient will continue home medications and Accu-Cheks at home. Qualifiers: Diabetes mellitus type: type 2 Diabetes mellitus complication status: without complication Diabetes mellitus assisted insulin use: without intermodal customer service use Qualified Code(s): E11.9 - Type 2 diabetes mellitus without complications (5) Crohns disease Priority: Secondary Status: Chronic Comments: Chronic. Continue home medications. No acute flair. Qualifiers: Gastrointestinal tract location: unspecified location Digestive disease complication type: unspecified complication Qualified Code(s): K50.919 - Crohn 's disease, unspecified, with unspecified complications (6) Dehydration Priority: Secondary Status: Acute Comments: Patient appears to be euvolemic. Labs within normal limits. Patient has been getting IV fluids and also tolerates by mouth intake well. - Discharge Medications Prescriptions: Doxycycline 100 mg PO BID #10 capsule Omeprazole 20 mg PO DAILY #30 tablet. Home Medications: Alfuzosin HCl [Uroxatral] 10 mg PO HS 08/16/15 [History] Cyclobenzaprine [Flexeril] 10 mg PO HS 08/16/15 [History] DiphenhydraMINE [Benadryl] 50 mg PO HS 08/16/15 [History] Diphenoxylate/Atropine [Lomotil 2.5 mg/0.025 mg] 1 tab PO TID 08/16/15 [History] Fenofibrate [Lofibra] 160 mg PO DAILY 08/16/15 [History] Folic Acid 1 mg PO DAILY 08/16/15 [History] Multivitamin [One Daily Essential] 1 tab PO DAILY 08/16/15 [History] metFORMIN [Glucophage] 1,000 mg PO BIDWM 08/16/15 [History] sulfaSALAzine [Sulfasalazine] 1,000 mg PO QAM 08/16/15 [History] Doxycycline 100 mg PO BID #10 capsule 07/26/16 [Rx] Omeprazole 20 mg PO DAILY #30 tablet. 07/26/16 [Rx] Allergies/Adverse Reactions: Allergies No Known Allergies Allergy (Verified 07/25/16 01:05) Procedures/tests Complete & Pending: Procedures Performed prior 72 hours Category Date Time Status US liver [US] Routine Exams 07/25/16 09:30 Completed EV echocardiogram Routine Y 07/25/16 01:10 Completed Date of admission: 07/25/16 00:45 Primary care physician: Mahendra Delgado, Consults: 07/25/16 01:47 Consult to [facility]orter [CONS] Routine Reason for SW Consult: financial concerns Discharging clinician: Porsche Campuzano Anticipated date of discharge: 07/26/16 - Patient Status Disposition: Home, Self-Care Condition: Good Functional capacity at discharge: independent ambulation Overall status at discharge: patient is back to baseline - Discharge Instructions Follow Up With: Mahendra Delgado MD [Primary Care Provider] - Additional Instructions: Continue your normal home medications. Make sure that you are doing her Accu-Cheks and taking her diabetic medications and watching your diet. Continue taking the antibiotic every 12 hours until they are gone. Someone will call you if the Erlichiosis and Anaplasmosis labs are positive. Start taking omeprazole in the morning. Take one every morning. Follow-up with Dr. Delgado in the next week to 10 days for follow-up visit. You will want to discuss your elevated transaminases, epigastric pain, and slightly elevated A1c with him. Return to the emergency department for any returning or new chest pain or for any other new or concerning symptoms. You have a 7mm RUL pulmonary nodule that will need follow up in 6-12 months. - Diet and Activity Activity: resume usual activities as tolerated Diet: diabetic diet, low fat, low cholesterol Hospital course: Mr. Stanley is a 66 year old male with a prior medical history of Crohn's disease, diabetes, and hyperlipidemia, who presented to the emergency department with reported epigastric pain with radiation to substernal area that began at 2 PM Darryn admission while he was at rest. He reports that it was 10/ 10. There is no radiation, but he did have nausea and profuse diaphoresis. Yesterday when I initially assessed him the pain was 4/10, he was given a GI cocktail which seemed to resolve the pain. it was a 1/10 after that and he denies pain today. He has a history of Crohn's disease and does have a GI specialist in [place], however he has never had an EGD per his report. Patient was not discharged yesterday due to transaminase levels and some yellow- rico to sclera and arms. Patient was wanting to leave due to concern for cost of admission, he did stay and decided not to sign out AMA. AST has had a significant decrease and is almost back to normal limits, ALT is back to normal limits. There is no hepatomegaly noted, abdomen is slightly tender epigastric area. Patient reports at one point that his doctor did tell him that he had hepatitis C antibodies. Patient also had lymphopenia, that has also resolved today. Never had any leukocytosis, fever. Echocardiogram showed a normal systolic function with LVEF of 6065%, mild diastolic dysfunction, normal RV size and function. Patient denies chest pain. Chest x-ray was negative, chest CTA showed hepatic steatosis and a pulmonary nodule that will need follow-up in 6-12 months. He also has some nonobstructing left nephrolithiasis. Right upper quadrant ultrasound showed no evidence of cholelithiasis or biliary obstruction, there was sludge noted in the gallbladder lumen. Again, hepatic steatosis was noted. No other acute findings. Patient's labs and vital signs have been within normal limits. He is anxious to return home, he will follow-up with Dr. Delgado as soon as he can. He should is ready for discharge. - Time Spent with Patient Total time spent providing and/or coordinating discharge services: Less than 30 minutes - Constitutional Vitals: Temp Pulse Resp BP Pulse Ox 98.2 F 71 18 183/102 99 07/26/16 07:46 07/26/16 07:46 07/26/16 07:46 07/26/16 07:46 07/26/16 07:46 General appearance: Present: cooperative, A&O X 3, pleasant, no acute distress, answers questions appropriately - Head Head exam: Present: normal inspection - Eye Eye exam: Present: normal appearance, conjuntiva pink. Absent: EOMI - ENT ENT exam: Present: mucous membranes moist, normal exam, normal external ear exam - Neck Neck exam general surgery: Present: normal inspection. Absent: lymphadenopathy , tenderness - Respiratory Respiratory exam: Present: CTAB. Absent: rales, respiratory distress, rhonchi, wheezes - Cardiovascular Cardiovascular exam: Present: RRR, +S1, +S2. Absent: diastolic murmur, systolic murmur - GI/Abdominal GI/Abdominal exam: Present: distended, normal bowel sounds. Absent: hepatomegaly, soft, tenderness - Neurological Exam Neurological exam: Present: alert, oriented X3, no focal deficits, strengths equal and symetr throughout
--- NOTE | 2016-07-27 08:06 | Electrocardiograph Report ---
[place] [id number] Test Date: 2016-07-24 Pat Name: Rj Stanley Department: 102 Room: 3B Gender: M License Registration Examiner: Shravan : [id number] Requested By: Chandrika Duran Order Number: [id number] Reading MD: Carlyle Finch MD Measurements Intervals [place] Rate: 110 P: 17 HI: 116 QRS: -43 QRSD: 92 T: 33 QT: 326 QTc: 391 Interpretive Statements SINUS TACHYCARDIA WITH SHORT HI INTERVAL MARKED LEFT AXIS DEVIATION Poor R wave progression Electronically Signed On 07-27-2016 8:04:32 EDT by Carlyle Finch MD
[2016-07-27 11:53] LABS: Hepatitis A Antibody IgM Nonreactive (Nonreactive); Hepatitis B Core IgM Nonreactive (Nonreactive); Hepatitis B Surface Antigen Nonreactive (Nonreactive); Hepatitis C Virus Antibody Nonreactive (Nonreactive)
[2016-07-27 13:45] LABS: Anaplasma phagocytophilum IgG <1:80 (<1:80); Anaplasma phagocytophilum IgM < 1:16 (< 1:16)
== END 2016-07-26 10:50 | disposition home or self-care (01) ==
LOC: EMEROO 21:13 → 3BNU 21:13
PROVIDERS: ADMIT Registered Nurse; ATTEND Registered Nurse